=== PATIENT | male | born 1980 | race Native Hawaiian/Other Pacific Islander ===

== ENCOUNTER 2021-02-13 06:17 | Emergency (ER) | payer OTHER ==
[~2021-02-13] VITALS: Ht 185.4 cm; Wt 104.3 kg
[2021-02-13 06:24] VITALS: TEMP 98.6
[2021-02-13 06:55] LABS: POTASSIUM 4.1 mmol/L (3.6-5.2)
[2021-02-13 06:58] LABS: PLATELET COUNT 173 K/uL (142-355)
[2021-02-13 09:06] VITALS: BP 138/94
== END 2021-02-13 09:30 | disposition home or self-care (01) ==
LOC: ED 06:17
PROVIDERS: Emergency Medicine Emergency Medical Services
DX: N13.2 Hydronephrosis with renal and ureteral calculous obstruction (principal); Z87.442 Personal history of urinary calculi
CPT/HCPCS: 36415; 80053; 85027; 96360; 96375; 96376; 99284; J0132; J1885; J2405